=== PATIENT | male | born 1975 | race Caucasian/White ===

== ENCOUNTER 2019-10-03 13:49 | Emergency (ER) | payer MEDICAID ==
[~2019-10-03] VITALS: Ht 180.3 cm; Wt 108.3 kg
[2019-10-03 13:56] VITALS: BP 150/86
[2019-10-03] MEDS ORDERED: AZIT250T81 PO (14:13)
[2019-10-03] MEDS ORDERED: ALBU8.5H8 IH (14:13)
[2019-10-03] MEDS ORDERED: BENZ-16 PO (14:13)
[2019-10-03] MEDS ORDERED: PRED20TA PO (14:13)
== END 2019-10-03 14:44 | disposition home or self-care (01) ==
LOC: ER 13:50
DX: J06.9 Acute upper respiratory infection, unspecified (principal); J40 Bronchitis, not specified as acute or chronic; R51 Headache; Z79.2 Long term (current) use of antibiotics; Z79.899 Other long term (current) drug therapy
CPT/HCPCS: 99283

== ENCOUNTER 2019-12-09 22:16 | Emergency (ER) | payer MEDICAID ==
[~2019-12-09] VITALS: Ht 180.3 cm; Wt 109.1 kg
[~2019-12-09 22:16] MED LIST: ALBU8.5H8 IH; BENZ-16 PO
[2019-12-09 23:11] VITALS: BP 138/94
== END 2019-12-09 23:34 | disposition home or self-care (01) ==
LOC: ER 22:16
DX: R05 Cough (principal); Z20.828 Contact with and (suspected) exposure to other viral communicable diseases; F17.200 Nicotine dependence, unspecified, uncomplicated
CPT/HCPCS: 36415; 71045; 99284; U0003

== ENCOUNTER 2019-12-23 20:13 | Inpatient (IN) | payer MEDICAID ==
[~2019-12-23] VITALS: Ht 180.3 cm; Wt 108.0 kg
[2019-12-23] MEDS ORDERED: LORazepam 1 MG tablet PO PRN (21:55)
[2019-12-23] MEDS ORDERED: haloperidol 5mg tablet PO PRN (21:55)
[2019-12-23] MEDS ORDERED: magnesium hydroxide 30ml (MOM) UD suspension PO PRN (21:55)
[2019-12-23] MEDS ORDERED: diphenhydrAMINE 25mg capsule PO PRN (21:55)
[2019-12-23] MEDS ORDERED: traZODone 50mg tablet PO PRN (21:55)
[2019-12-23] MEDS ORDERED: acetaminophen 325mg tablet PO PRN ×2 (21:55)
[2019-12-23] MEDS ORDERED: quetiapine 100mg tablet PO PRN (21:55)
[2019-12-23] MEDS ORDERED: loperamide 2mg capsule PO PRN (21:55)
[2019-12-23] MEDS ORDERED: mag hydrox/Alum hydrox/simeth 30ml oral suspension PO PRN (21:55)
[2019-12-23] MEDS ORDERED: NICOTINE POLACRILEX 2 MG LOZENGE BC PRN (21:55)
[2019-12-23 22:50] VITALS: BP 144/86
--- NOTE | 2019-12-24 03:15 | NUR ---
Admission note: Client transferred from [facility]. Arrived on unit 21:41 at accompanied by Jayy Castillo Client reports increasing depression and thoughts of suicide. Client is a daily Meth user, and has a hx of heroin use (stopped 7 years ago). States he has access to heroin if he decided to overdose. Several prior overdose attempts. Client presents with blunted affect and depressed mood. Skin assessment was performed by Petra Sanderson RN and this RN, he then showered. Client was pleasant and cooperative during admission. After assessments were completed and belongings were inventoried the client went to sleep. He states, "I'm still coming down off Meth."
[2019-12-24 07:55] VITALS: BP 131/80
[2019-12-24 08:06] LABS: HEMOGLOBIN A1C 5.2 % (4.5-6.2)
[2019-12-24 08:14] LABS: CHOLESTEROL 169 MG/DL (0-200); HDL CHOLESTEROL 42 MG/DL (35-60); LDL CHOLESTEROL 113 MG/DL (50-100); TRIGLYCERIDES 102 MG/DL (20-135)
[2019-12-24] MEDS: nicotine 21mg patch - 24 hr TD SCH (08:19)
[2019-12-24] MEDS ORDERED: NO HOME MEDS (10:41)
--- NOTE | 2019-12-24 17:56 | NUR ---
NURSING PROGRESS NOTE: Legal hold: 5150 Client on involuntary status for DTS Report received from RN with use of SBAR Why are they here: Client transferred from [facility]. Client reports increasing depression and thoughts of suicide. Client is a daily Meth user, and has hx of heroin use (stopped 7 years ago). States he has access to heroin if he decided to overdose. Several prior overdose attempts. Client presents with blunted affect and depressed mood. Assessment What has happened this shift: Received Pt in bed sleeping w/o distress at beginning of shift. Pt woke for vitals and was pleasant and cooperative. Pt accepted the nicotine patch but did not have any other scheduled meds. Pt did not ask for prn meds. He did not want to eat breakfast and went back to sleep. Pt reports he is coming down from meth. He denies SI and any physical complaints. He got up and ate lunch and dinner. Spent most of day in bed. SI/HI: Denies. A/VH: Denies. Sleep: In bed most of shift ADL's: Independent Group attendance: Were meds taken: Yes, patient is medication compliant. Any med S/E: None. Mental Status Exam Appearance: Casual Eye contact: Fair Behavior: Cooperative Speech: Soft, normal rate, rhythm, and tone Mood: Quiet, cooperative Affect: Restricted Thought process: Linear Thought Content: Getting rest Cognition: Lethargic Insight: Poor Judgment: Poor Interventions PRN's used: None Therapeutic interventions: 1:1 therapeutic assessment, establishment of rapport, active listening, therapeutic conversation, medication administration/education/monitoring, encouraged sleep, contracts for safety, Q15 min safety checks. Restraints/seclusion/emergency medication: N/A Justification of Continued Inpatient Treatment: Pt requires interruption of current crisis, medication adjustment and monitoring on a safe and therapeutic environment until stable to prevent self-harm and/or readmission.
[2019-12-24] MEDS: LORazepam 1 MG tablet PO PRN (19:40)
[2019-12-24 20:00] VITALS: BP 134/85
[2019-12-24] MEDS: lurasidone 20mg tablet PO SCH (20:39)
--- NOTE | 2019-12-25 02:35 | NUR ---
NURSING PROGRESS NOTE: Legal hold: 5150 Client on involuntary status for DTS Report received from RN with use of SBAR Why are they here: Client transferred from [facility]. Client reports increasing depression and thoughts of suicide. Client is a daily Meth user, and has hx of heroin use (stopped 7 years ago). States he has access to heroin if he decided to overdose. Several prior overdose attempts. Client presents with blunted affect and depressed mood. Assessment What has happened this shift: Pt sleeping at start of shift. Woke up for VS and talked to ANSHUL Dupont in office. Pt is pleasant and cooperative given prn Ativan per request. Pt said he is still "coming down from the Meth" per pt he has been off meth for 6 months but started again 4 days ago. He attends AA meetings and has a sponsor as a support group for his drug use, although he doesn't drink. Stopped talking to his sponsor some time ago. Agrees it would be a good idea to start again. Pt states he wants to stop using meth. Given PRN Ativan per request. Pt denies depression or SI but says he suffers from Anxiety all the time. Pt educated on new order for Latuda cooperative with adequate calorie intake. SI/HI: Denies. A/VH: Denies. Sleep: sleeping most of shift ADL's: Independent Group attendance: Were meds taken: Yes, Any med S/E: None. Mental Status Exam Appearance: Scrubs, facial tattoos Eye contact: Fair Behavior: Cooperative Speech: Soft, normal rate, rhythm, and tone Mood: Quiet, cooperative Affect: Restricted Thought process: Linear Thought Content: Getting Off Meth Cognition: fair Insight: fair Judgment:fair Interventions PRN's used: Ativan Therapeutic interventions: 1:1 therapeutic assessment, establishment of rapport, active listening, therapeutic conversation, medication administration/education/monitoring, encouraged sleep, contracts for safety, Q15 min safety checks. Restraints/seclusion/emergency medication: N/A Justification of Continued Inpatient Treatment: Pt requires interruption of current crisis, medication adjustment and monitoring on a safe and therapeutic environment until stable to prevent self-harm and/or readmission.
[2019-12-25] MEDS: nicotine 21mg patch - 24 hr TD SCH (08:02)
[2019-12-25 08:50] VITALS: BP 127/63
--- NOTE | 2019-12-25 17:32 | NUR ---
NURSING PROGRESS NOTE: Legal hold: 5150 Client on involuntary status for DTS Report received from RN with use of SBAR Why are they here: Client transferred from [facility]. Client reports increasing depression and thoughts of suicide. Client is a daily Meth user, and has hx of heroin use (stopped 7 years ago). States he has access to heroin if he decided to overdose. Several prior overdose attempts. Client presents with blunted affect and depressed mood. Assessment What has happened this shift: Received pt sleeping in bed. Patient spends the day isolating and withdrawn, sleeping from coming down from meth. Patient reports that he has been in senior living since he was 19 years old, and doesnt have any coping mechanisms to help him deal with his stressors. Pt. reports that he was sober for years, then relapsed. He has been working at his first legitimate job at [employer] but does not know if he still has a job since he hasnt contacted them. Pt. got his son living with him, but now he is living with his aunt. Patient is homeless, and states the worst thing that could happen to me is that I get out of here and I am homeless. Pt. is thinking of relocating back to [place] where he doesnt know anybody and can start his life over again. He reports that there is a clean and sober house that will accept him in [place]. SI/HI: Denies. A/VH: Denies. Sleep: 10 hrs NOC, slept most of the day. ADL's: Independent Group attendance: NA Were meds taken: Yes, patient is medication compliant. Any med S/E: None. Mental Status Exam Appearance: Disheveled laying in bed. Eye contact: Fair Behavior: Cooperative Speech: Soft, normal rate, rhythm, and tone Mood: Depressed. Affect: Restricted Thought process: Linear Thought Content: Whether he has a job, where he will be discharged. Cognition: Lethargic Insight: Poor Judgment: Poor Interventions PRN's used: None Therapeutic interventions: 1:1 therapeutic assessment, establishment of rapport, active listening, therapeutic conversation, medication administration/education/monitoring, encouraged sleep, contracts for safety, Q15 min safety checks. Restraints/seclusion/emergency medication: N/A Justification of Continued Inpatient Treatment: Pt requires interruption of current crisis, medication adjustment and monitoring on a safe and therapeutic environment until stable to prevent self-harm and/or readmission.
[2019-12-25 20:00] VITALS: BP 120/70
[2019-12-25] MEDS: lurasidone 20mg tablet PO SCH (20:36)
[2019-12-25] MEDS: LORazepam 1 MG tablet PO PRN (20:36)
--- NOTE | 2019-12-26 03:32 | NUR ---
Nursing Progress Note: Legal hold: 5150 Client on involuntary status for DTS Report received from Warren RN with use of SBAR Why are they here: Client transferred from [facility]. Client reports increasing depression and thoughts of suicide. Client is a daily Meth user, and has hx of heroin use (stopped 7 years ago). States he has access to heroin if he decided to overdose. Several prior overdose attempts. Client presents with blunted affect and depressed mood. Assessment What has happened this shift: The patient was sleeping at shift change. He woke for 1:1, but didn't have much to say. when asked what happened to bring him here, he responded, "life, you know." He reports that he can't take being homeless anymore. "You have to use meth, so you can stay up all night to protect yourself and belongings. Then you try to sleep in the daytime when it is safer." The patient reports that when he used to do meth it didn't make him depressed, now it does. "I started getting suicidal, so I decided I needed to check in." He figures that this will be just a little respite, "because I know they are going to send me back to the streets. I might as well go back to jail." The patient spent the evening in bed, was cooperative with his Latuda, then went back to sleep. SI/HI: Denies. A/VH: Denies. Sleep: See sleep assessment ADL's: Independent Group attendance: Were meds taken: Yes, Any med S/E: None. Mental Status Exam Appearance: Scrubs, facial tattoos, unshaved Eye contact: Fair Behavior: Cooperative Speech: Normal rate/rhythm Mood: Quiet, cooperative Affect: Blunted Thought process: Linear Thought Content: Getting Off Meth Cognition: A/O x4 Insight: fair Judgment:fair Interventions PRN's used: Ativan Therapeutic interventions: 1:1 therapeutic assessment, establishment of rapport, active listening, therapeutic conversation, medication administration/education/monitoring, encouraged sleep, contracts for safety, Q15 min safety checks. Restraints/seclusion/emergency medication: N/A Justification of Continued Inpatient Treatment: Pt requires interruption of current crisis, medication adjustment and monitoring on a safe and therapeutic environment until stable to prevent self-harm and/or readmission.
[2019-12-26 08:28] VITALS: BP 129/79
[2019-12-26] MEDS: nicotine 21mg patch - 24 hr TD SCH (08:29)
--- NOTE | 2019-12-26 11:25 | NUR ---
PSYCHOSOCIAL ASSESSMENT Sergey is a 44 y/o male who was placed on 5150 for danger to self. He presented to [facility] ED with suicidal ideation with a plan to overdose on heroin. He and his girlfriend/fiancee broke up and he became homeless and was living in his car. He relapsed on meth and used for 4 days prior to going to the ED. He reported a history of Bipolar, however, has not had any mental health treatment recently. He has been in [place] [facility] since age 19 on and off for 8 different terms. He was recnetly was released from [place] [facility] 04/2019 and is currently on parole for the next 3 years. He denied any current SI or HI. He reported he is going to stay at the [facility] and try to get into the [facility]. [facility] referred him to [facility] for follow up. NEY Tai Addendum: 12/26/19 at 1125 by Kendal Medrano SS Amended: Links added.
[2019-12-26] MEDS ORDERED: TRAZ-251 PO (11:38)
[2019-12-26] MEDS ORDERED: LURA40TA3 PO (11:38)
[2019-12-26] MEDS: LORazepam 1 MG tablet PO PRN (12:32)
--- NOTE | 2019-12-26 13:18 | NUR ---
DISCHARGE NOTE: Patient's belongings were inventoried and given to patient. Patient denies any SI. Patient's is discharging home to [place], his girlfriend is here to pick him up. Patient is in good spirits. Atarax given with good effect. Patient discharged in stable condition.
== END 2019-12-26 13:18 | disposition home or self-care (01) | DRG 753 ==
LOC: ADULT MH 21:36
PROVIDERS: ADMIT Psychiatry & Neurology Psychiatry; ATTEND Psychiatry & Neurology Psychiatry
DX: F31.30 Bipolar disorder, current episode depressed, mild or moderate severity, unspecified (principal); F15.20 Other stimulant dependence, uncomplicated; R45.851 Suicidal ideations; B19.20 Unspecified viral hepatitis C without hepatic coma; F39 Unspecified mood [affective] disorder; F17.210 Nicotine dependence, cigarettes, uncomplicated; Z59.0 Homelessness; Z65.3 Problems related to other legal circumstances; Z71.6 Tobacco abuse counseling
CPT/HCPCS: 36415; 80061; 83036; 87081